=== PATIENT | male | born 1965 | race Caucasian/White ===

== ENCOUNTER → 2018-04-14 | Outpatient (CLI) | payer OTHER ==
--- NOTE | 2018-04-14 15:12 | RAD ---
INDICATION: Jammed finger 3 days ago. Persistent pain and bruising. Swelling. Cannot bend finger. TECHNIQUE: 3 views of the left third digit including an AP view of the hand are submitted for review. No comparison is available. FINDINGS: There is soft tissue swelling in the third digit. There is no fracture or dislocation. There are postsurgical changes in the first proximal phalanx. IMPRESSION: Soft tissue swelling of the third digit. No evidence of an acute fracture or dislocation. Electronically signed by: Franklin Simental MD (04/14/2018 3:08 PM) [facility]
== END | disposition home or self-care (01) ==
LOC: PMG 14:37
PROVIDERS: ATTEND Physician Assistant Medical
DX: M79.89 Other specified soft tissue disorders (principal)
CPT/HCPCS: 73140